=== PATIENT | male | born 1980 ===

== ENCOUNTER 2020-02-04 14:28 | Emergency (ER) | payer BC ==
[2020-02-04] MEDS ORDERED: IBUPROFEN 400 MG TABLET (FP) PO ONE ×2 (14:32→14:36)
[2020-02-04 14:54] VITALS: BP 130/87; PULSE 116; TEMP 97.8; BMI 27.1
== END 2020-02-04 16:23 | disposition home or self-care (01) ==
LOC: FER 14:28
DX: S43.101A Unspecified dislocation of right acromioclavicular joint, initial encounter (principal)
CPT/HCPCS: 73000-TC-RT-FY; 73030-TC-RT-FY; 99284-25